=== PATIENT | male | born 1985 | race Caucasian/White ===

== ENCOUNTER 2021-04-20 17:08 | Emergency (ER) | payer MEDICAID ==
[~2021-04-20] VITALS: Ht 172.7 cm; Wt 134.0 kg
[2021-04-20 17:18] VITALS: BP 111/78
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
== END 2021-04-20 19:00 | disposition home or self-care (01) ==
LOC: ED 17:30
DX: R45.6 Violent behavior (principal)
CPT/HCPCS: 99285